=== PATIENT | female | born 1950 | race Two or more races ===

== ENCOUNTER 2023-06-08 19:40 | Emergency (ER) | payer OTHER ==
[~2023-06-08] VITALS: Ht 167.6 cm; Wt 72.6 kg
== END 2023-06-09 00:34 | disposition home or self-care (01) ==
LOC: ER 19:40
DX: T85.528A Displacement of other gastrointestinal prosthetic devices, implants and grafts, initial encounter (principal); Y92.89 Other specified places as the place of occurrence of the external cause; I10 Essential (primary) hypertension; Z74.01 Bed confinement status; Z88.6 Allergy status to analgesic agent; Z88.0 Allergy status to penicillin; Z88.8 Allergy status to other drugs, medicaments and biological substances

== ENCOUNTER 2023-06-23 20:28 | Emergency (ER) | payer OTHER ==
[~2023-06-23] VITALS: Ht 157.5 cm; Wt 54.4 kg
[2023-06-23] MEDS ORDERED: COZAAR100 MG (20:44)
[2023-06-23] MEDS ORDERED: NORVASC2.5 MG (20:44)
[2023-06-23] MEDS ORDERED: SYNTHROID75 MCG (20:44)
[2023-06-23] MEDS ORDERED: PROTONIX40 MG (20:44)
[2023-06-23] MEDS ORDERED: LANTUS SOL100 UNIT/1 (20:44)
[2023-06-23] MEDS ORDERED: CRESTOR20 MG (20:45)
[2023-06-23] MEDS ORDERED: IPRATROPIU0.2 MG/1 M (20:45)
[2023-06-23] MEDS ORDERED: 0.9 % SODIUM CHLORIDE 1,000 ML IV SCH (21:45)
[2023-06-23 22:01] LABS: HEMOGLOBIN 13.5 g/dL (12.0-15.00); MEAN CELL VOLUME 93.2 fL (80.00-100.00); MEAN CORPUSCULAR HEMOGLOBIN 31.3 pg (27.00-32.0); MEAN CORPUSCULAR HGB CONC 33.6 g/dl (32.0-36.0); PLATELET COUNT 364 K/uL (150-450); RED BLOOD COUNT 4.29 M/uL (4.00-6.00); RED CELL DISTRIBUTION WIDTH 12.8 % (11.5-14.5)
[2023-06-23 22:30] LABS: ALBUMIN 3.1 gm/dL (3.4-5.0); BILIRUBIN TOTAL 0.34 mg/dL (0.3-1.2); CALCIUM 9.6 mg/dL (8.5-10.1); CREATININE SERUM 0.65 mg/dL (0.55-1.02); GFR 89.85; GLOBULINA 4.5 G/DL (2.4-3.5); POTASSIUM 3.48 mEq/L (3.5-5.1); TOTAL PROTEIN 7.6 gm/dL (6.4-8.2)
[2023-06-23 23:10] LABS: PH,URINE 6.5 (5.0-8.0); URINE APPEARANCE Clear; URINE BILIRRUBIN Negative (NEGATIVE); URINE BLOOD Negative; URINE COLOR Dark Yellow; URINE GLUCOSE Negative (NEGATIVE); URINE LEUKOCYTE Small; URINE NITRATE Negative; URINE PROTEIN Trace (NEGATIVE)
[2023-06-23 23:14] LABS: URINE BACTERIA 6515.1 uL (0.0-1933); URINE WBC 45.1 uL (0.0-23.2)
[2023-06-24] MEDS ORDERED: GENTAMICIN SULFATE 40 MG/ML VIAL IV ONE (00:45)
[2023-06-24 05:56] LABS: HEMATOCRIT 35.2 % (36.0-45.00); MEAN CELL VOLUME 94.4 fL (80.00-100.00); MEAN CORPUSCULAR HEMOGLOBIN 32.2 pg (27.00-32.0); MEAN CORPUSCULAR HGB CONC 34.1 g/dl (32.0-36.0); PLATELET COUNT 323 K/uL (150-450); RED BLOOD COUNT 3.73 M/uL (4.00-6.00); RED CELL DISTRIBUTION WIDTH 12.3 % (11.5-14.5)
== END 2023-06-24 11:31 | disposition home or self-care (01) ==
LOC: ER 20:28
PROVIDERS: General Practice
DX: K29.70 Gastritis, unspecified, without bleeding (principal); R11.2 Nausea with vomiting, unspecified; Z88.0 Allergy status to penicillin; Z88.2 Allergy status to sulfonamides; Z93.1 Gastrostomy status; Z93.0 Tracheostomy status; Z20.822 Contact with and (suspected) exposure to COVID-19
CPT/HCPCS: 36415; 71250; 74240; 96365; 96366; 99284; J3490; J7030